=== PATIENT | female | born 1940 | race Caucasian/White ===

== ENCOUNTER → 2017-04-11 | Outpatient (CLI) | payer MEDICARE ==
--- NOTE | 2017-04-14 08:07 | CT ---
EXAM DESCRIPTION: Chest w/Contrast CLINICAL HISTORY: LUNG NODULE (ICD-518.89) (CUR71-Q32.8) COMPARISON: August 08, 2016 and an older exam from January 30, 2015 TECHNIQUE: Chest CT was performed with IV contrast. This exam was performed according to our departmental dose-optimization program, which includes automated exposure control, adjustment of the mA and/or kV according to patient size and/or use of iterative reconstruction technique. FINDINGS: Mural calcifications involve the thoracic aorta without aneurysm or dissection. The main pulmonary artery is not dilated. No pleural or pericardial effusion. No mediastinal or hilar adenopathy. The central airways are clear. Emphysematous changes are noted. There is a 6 mm noncalcified left upper lobe nodule (series 2 image 16), decreased in size from January, and stable from July,. There is a second noncalcified nodule in the left upper lobe nodule which is elongated and measures up to 9 mm diameter, stable or decreased in size from prior exams. Smaller noncalcified nodules elsewhere in both lungs are also stable from January 30, 2015. No new lung nodule. Visualized portions of the upper abdomen are unremarkable. The gallbladder is surgically absent. There are degenerative changes in the thoracolumbar spine multiple levels including slight scoliosis only partially visualized. IMPRESSION: Emphysema with small noncalcified nodules in both lungs as detailed above, all stable from January, and very likely benign. Electronically signed by: Jose Joseph MD 04/14/2017 8:06 AM CDT Workstation: [id number]
== END | disposition home or self-care (01) ==
LOC: CT 09:43
PROVIDERS: ATTEND Internal Medicine Pulmonary Disease
DX: R91.8 Other nonspecific abnormal finding of lung field (principal)

== ENCOUNTER → 2018-07-15 | Outpatient (CLI) | payer MEDICARE ==
--- NOTE | 2018-07-15 10:55 | CT ---
PROCEDURE: CT LUNG CANCER SCREENING CLINICAL HISTORY: Screening visit known lung nodules, compare to previous studies, and known smoker two packs per day for 10 years COMPARISON: previous CT of the chest April 11, 2017 and August 08, 2016 TECHNIQUE: DLP: 71.74 mGycm FINDINGS: Exam parameters: 2.[address] scanning through the chest without contrast Diagnostic quality: Good Comments: Axial images are diagnostic. MIP images are suboptimal. Lung nodules: Nodule #1 measures 6 mm x 5 mm image # 39, series 2. This is in the posterior aspect of the apicoposterior segment left upper lobe. This appears unchanged compared to the previous studies. #2 : Cluster of nodules in the right lower lobe midway between the superior segment and the basilar segments is seen on axial images 82 through 91. Each nodule measures 3 to 4 mm and these are unchanged compared to the previous study. Nodule #3 lateral aspect of the right lower lobe measures 2.5 mm unchanged. image # 96, series 2 Lungs: COPD: There is extensive centrilobular emphysematous disease throughout both lungs, worst in the upper lobes and left lower lobe. These findings are stable. Fibrosis: Linear scarring in the upper lobes is present bilaterally. No subpleural honeycomb fibrosis. Lymph nodes: No enlarged lymph nodes in the mediastinum. No hilar lizz enlargement. Other findings: No acute appearing infiltrate. Small right apical density is thought to be focal scarring rather than another nodule. Right pleural space: Effusion: Negative Calcifications: Negative Thickening: Negative Pneumothorax: Negative Left pleural space: Effusion: Negative Calcifications: Negative Thickening: Negative Pneumothorax: Negative Heart: Heart size: Normal Coronary calcification: Moderate Pericardial effusion: None Other findings: Upper abdomen: Unremarkable Thorax: Spurring in the T-spine. Breast tissue appears symmetrical. Base of neck: Normal thyroid. No adenopathy. Impression: Stable bilateral pulmonary nodules consistent with granulomas. LUNG RADS: Category 2: BENIGN APPEARANCE or behavior. Nodules with a very low likelihood of becoming a clinically active cancer due to size or lack of growth. Findings include solid nodules < 6 mm or new nodule < 4 mm. Part solid nodule(s) < 6 mm total diameter on baseline screening (which is the average of all three dimensions). Non-solid groundglass nodule(s) < 20 mm or >= 20 mm and unchanged or slowly growing. Category three or four nodules that are unchanged for >= 3 months. MANAGEMENT: Continue annual screening with low dose CT in 12 months. Modifier: Severe emphysema. This exam was performed according to our departmental dose-optimization program, which includes automated exposure control, adjustment of the mA and/or kV according to patient size and/or use of iterative reconstruction technique. Electronically signed by: Cecil Ventura MD 07/15/2018 10:54 AM CDT
--- NOTE | 2018-07-16 20:28 | MAM ---
EXAM DESCRIPTION: 3D Screening BILATERAL : Digital Mammography. CLINICAL HISTORY: 77 years Female SCREEN . No complaints and no personal history of breast cancer. Mother with breast and ovarian cancer. Childbirth. Postmenopausal. No HRT. Lifetime risk of developing breast cancer (Tyrer-Cuzick model)(%): 5.8 COMPARISON: 2-D digital screening bilateral study 03/03/2009.. No prior reports available. TECHNIQUE: Bilateral CC and MLO projection full-field images, Digital tomosynthesis mammographic technique. Bilateral digital 2-D full-field MLO images. CAD not utilized. FINDINGS: The breast parenchymal density pattern is: Scattered areas of fibroglandular density. No skin thickening or nipple retraction. Birads 2 Findings. No new focal, stellate mass or density, focal asymmetry , and no suspicious microcalcifications bilaterally. Stable mammograms compared to prior study. Taking into account, differences in mammographic technique. IMPRESSION: BI-RADS CATEGORY: 1 - NEGATIVE FOLLOW UP: Routine digital bilateral screening, one year interval from June 2018. Written communication explaining the findings and follow-up, will be mailed to the patient and referring health care provider. According to the [employer], yearly mammograms are recommended starting at age 40 and continuing as long as a woman is in good health. Any breast change noted on a breast self-exam should be reported promptly to the patient's healthcare provider. Breast MRI is recommended for women with an approximately 20-25% or greater lifetime risk of breast cancer, including women with a strong family history of breast or ovarian cancer and women who have been treated for Hodgkin's disease. A negative mammographic report should not delay tissue diagnosis in patients with significant clinical history or physical findings. Extremely dense breast tissue limits the sensitivity of digital mammography. Electronically signed by: Sekou Linton MD 07/16/2018 8:27 PM CDT
== END ==
LOC: CT 09:48
PROVIDERS: ATTEND General Practice
DX: Z12.31 Encounter for screening mammogram for malignant neoplasm of breast (principal); Z87.891 Personal history of nicotine dependence; R91.8 Other nonspecific abnormal finding of lung field; Z72.0 Tobacco use
CPT/HCPCS: 77063; 77067; G0297